=== PATIENT | male | born 1975 | race Caucasian/White ===

== ENCOUNTER 2016-11-06 13:25 | Emergency (ER) | payer OTHER ==
[~2016-11-06] VITALS: Ht 167.6 cm; Wt 86.2 kg
[2016-11-06 13:25] VITALS: BP_SYST 139
[2016-11-06 13:56] VITALS: BP_SYST 151
== END 2016-11-06 13:45 ==
LOC: SED 13:25
DX: Z02.89 Encounter for other administrative examinations (principal)
CPT/HCPCS: 99283